=== PATIENT | male | born 1980 | race Caucasian/White ===

== ENCOUNTER 2017-09-13 11:28 | Emergency (ER) | payer SELFPAY ==
[~2017-09-13] VITALS: Ht 185.4 cm; Wt 94.9 kg
[~2017-09-13 11:28] MED LIST: VIST25CA PO; Z.0.NO CURRENT MEDS
[2017-09-13 11:40] VITALS: BP 144/77; PULSE 92; RESP 16; TEMP 97.9; O2SAT 100
--- NOTE | 2017-09-13 11:55 | PD ---
HPI Chief Complaint: Musculoskeletal Complaint Time Seen by Provider: 11:30 Travel History International Travel<30 days: No Contact w/Intl Traveler<30days: No Traveled to known affect area: No History of Present Illness HPI 37-year-old male complains of painful lump on the left side of the neck and right groin pain. Patient states that he had right inguinal hernia repair in 1996. Patient states that he had persistent sharp pain localized to right groin since surgery. Patient denies any dysuria or frequency. Patient denies any nausea vomiting diarrhea. Patient noticed a lump on the left side and neck about 7 years ago. Patient states that he has intermittent left-sided neck pain for the past 7 years however the pain is worse for the past 2 weeks. Patient denies any recent injury. Patient states that the pain radiate from the left-sided neck to the posterior aspect left-sided head. Patient denies any chest pain or shortness of breath. Patient denies abdominal pain. Patient denies any focal weakness or numbness of extremity. PFSH Past Medical History ADHD: Yes Anxiety: Yes Diminished Hearing: No Inguinal Hernia: Yes (2 on the right and 1 on the left approx 9 yrs ago) Tetanus Vaccination: < 5 Years Influenza Vaccination: Yes Past Surgical History Abdominal Surgery: Yes (bilat hernia repair, right groin x 2 and left side x 1 with mesh) Other Surgery: Yes (right arm r/t a dog bite) Social History Alcohol Use: Yes (denies at present) Tobacco Use: Yes (hx of cigs 2-3 PPD quit 3 yrs ago but states now dips tabacco daily) Substance Use: No (denies any use at present time) Allergies-Medications (Allergen,Severity, Reaction): Coded Allergies: house dust (Unverified Allergy, Mild, 03/07/17) Reported Meds & Prescriptions Reported Meds & Active Scripts Active No Active Prescriptions or Reported Medications Review of Systems General / Constitutional: No: Fever Eyes: No: Visual changes HENT: Positive: Neck Pain, No: Headaches Cardiovascular: No: Chest Pain or Discomfort Respiratory: No: Shortness of Breath Gastrointestinal: No: Abdominal Pain Genitourinary: No: Dysuria Musculoskeletal: No: Pain Skin: No Rash Neurologic: No: Weakness Psychiatric: No: Depression Endocrine: No: Polydipsia Hematologic/Lymphatic: No: Easy Bruising Physical Exam Narrative GENERAL: Well-nourished, well-developed patient. SKIN: Focused skin assessment warm/dry. HEAD: Normocephalic. EYES: No scleral icterus. No injection or drainage. NECK: Supple, trachea midline. No JVD or lymphadenopathy. Patient has a small soft tissue mass on the left posterior aspect of the neck. Mild tenderness on palpation. No redness no heat noted induration noted. CARDIOVASCULAR: Regular rate and rhythm without murmurs, gallops, or rubs. RESPIRATORY: Breath sounds equal bilaterally. No accessory muscle use. GASTROINTESTINAL: Abdomen soft, non-tender, nondistended. Patient has well- healed scar on the right inguinal area. No evidence of hernia. No mass noted. No tenderness on palpation of the scrotum, testicle. MUSCULOSKELETAL: No cyanosis, or edema. BACK: Nontender without obvious deformity. No CVA tenderness. Neurologic exam normal. Data Data Last Documented VS Vital Signs Date Time Temp Pulse Resp B/P (MAP) Pulse Ox O2 Delivery O2 Flow Rate FiO2 09/13/17 11:43 16 09/13/17 11:40 97.9 92 144/77 (99) 100 Orders Orders Basic Metabolic Panel (Bmp) (09/13/17 11:39) Iv Access Insert/Monitor (09/13/17 11:39) Ct Soft Tiss Neck W Iv Cont (09/13/17 11:39) Iohexol 350 Inj (Omnipaque 350 Inj) (09/13/17 12:52) Labs Laboratory Tests Test 09/13/17 11:57 Blood Urea Nitrogen 17 MG/DL Creatinine 0.98 MG/DL Random Glucose 82 MG/DL Calcium Level 8.3 MG/DL Sodium Level 138 MEQ/L Potassium Level 3.8 MEQ/L Chloride Level 104 MEQ/L Carbon Dioxide Level 26.9 MEQ/L Anion Gap 7 MEQ/L Estimat Glomerular Filtration Rate 86 ML/MIN MDM Medical Decision Making Medical Screen Exam Complete: Yes Emergency Medical Condition: Yes Interpretation(s) Last Impressions Neck CT 09/13/17 1139 Signed Impressions: Service Date/Time: Wednesday, September 13, 2017 12:41 - CONCLUSION: Sinusitis. Mild likely reactive prominence of upper cervical lymph nodes. No evidence of mass or collection in the posterior left neck Vinod Marei MD 1320 p.m. BMP within normal limit. Differential Diagnosis Differential diagnosis including neck Cyst, neck mass, recurrent right inguinal hernia, neuroma, neuralgia, epididymitis orchitis. Narrative Course 37-year-old male persistent pain on the right inguinal area status post right inguinal hernia repair in 1996. Patient also complained of painful lump on the left-sided neck. Diagnosis Primary Impression: Cervical adenitis Additional Impression: Neuralgia Patient Instructions: General Instructions Additional Instructions: Augmentin as directed. Ibuprofen for pain. Follow-up with personal physician. Return if worse. Med/Other Pt SpecificInfo: Prescription(s) given Scripts Ibuprofen (Ibuprofen) 600 Mg Tab 600 MG PO TID for Pain, #30 TAB 0 Refills Prov: Owen Mckeon MD 09/13/17 Amoxicillin-Clavulanate (Augmentin) 875-125 Mg Tab 1 TAB PO BID for Infection, #20 TAB 0 Refills Prov: Owen Mckeon MD 09/13/17 Disposition: 01 DISCHARGE HOME Condition: Stable Owen Mckeon MD Sep 13, 2017 11:55
[2017-09-13 12:16] LABS: BICARBONATE 26.9 MEQ/L (21.0-32.0); CALCIUM 8.3 MG/DL (8.5-10.1)
[2017-09-13 12:20] LABS: CREATININE 0.98 MG/DL (0.60-1.30)
[2017-09-13] MEDS ORDERED: IOHEXOL 350 MG/ML 10 ML VIAL (for RAD DIAG) IVCONTRAST ONE (12:52)
--- NOTE | 2017-09-13 13:10 | RADRPT ---
EXAM DATE/TIME: 09/13/2017 12:41 [facility] COMPARISON: No previous studies available for comparison. INDICATIONS : Left posterior neck pain over cystic structure. Cephalgia. IV CONTRAST: 60 cc Omnipaque 350 (iohexol) IV RADIATION DOSE: 13.57 CTDIvol (mGy) MEDICAL HISTORY : Hernia, inguinal. SURGICAL HISTORY : Inguinal hernia repair. ENCOUNTER: Initial ACUITY: 4 - 6 days PAIN SCALE: 7/10 LOCATION: Left neck TECHNIQUE: Volumetric scanning of the neck was performed. Using automated exposure control and adjustment of th e mA and/or kV according to patient size, radiation dose was kept as low as reasonably achievable to obtain optimal diagnostic quality images. DICOM format image data is available electronically for r eview and comparison. FINDINGS: There is moderate sinusitis present in multiple ethmoid sinuses, in the frontal recesses and in the r ight sphenoid sinus. There is no evidence of neck mass. There is specifically no mass or collection deep to the marker jeanette francis posterior left neck. There are small lymph nodes present in the neck bilaterally, none pathologic by size criteria or appe arance. There is no evidence of supraclavicular adenopathy. The visualized upper mediastinum and lung apices are clear. The thyroid is unremarkable for CT appearance. CONCLUSION: Sinusitis. Mild likely reactive prominence of upper cervical lymph nodes. No evidence of mass or collection in the posterior left neck Vinod Marie MD on September 13, 2017 at 13:04 Board Certified Radiologist. This report was verified electronically.
[2017-09-13] MEDS ORDERED: IBUP-232 PO (13:25)
[2017-09-13] MEDS ORDERED: AUGM875T3 PO (13:25)
== END 2017-09-13 13:55 | disposition home or self-care (01) ==
LOC: PHED 11:28
DX: I88.9 Nonspecific lymphadenitis, unspecified (principal); M79.2 Neuralgia and neuritis, unspecified; F17.220 Nicotine dependence, chewing tobacco, uncomplicated
CPT/HCPCS: 70491; 80048; 99284; Q9967